=== PATIENT | female | born 1950 | race Caucasian/White ===

== ENCOUNTER 2021-01-14 13:15 | Inpatient (IN) | payer MEDICARE, BC ==
[~2021-01-14] VITALS: Ht 162.6 cm; Wt 71.2 kg
[2021-01-15] MEDS ORDERED: POTA10TA11 PO (12:19)
[2021-01-15] MEDS ORDERED: AMLO-212 PO (12:19)
[2021-01-15] MEDS ORDERED: ATOR10TA PO (12:19)
[2021-01-15] MEDS ORDERED: LAMO200T52 PO (12:19)
[2021-01-15] MEDS ORDERED: QUET200T PO (12:19)
[2021-01-15] MEDS ORDERED: MOME13HF IH (12:19)
[2021-01-15] MEDS ORDERED: LOSA100T31 PO (12:19)
[2021-01-15] MEDS ORDERED: DIVA500T54 PO (12:19)
[2021-01-15] MEDS ORDERED: LURA80TA PO (12:19)
[2021-01-15] MEDS ORDERED: TRAM50TA2 PO (12:19)
[2021-01-15] MEDS ORDERED: HYDR25TA4 PO (12:19)
[2021-01-15] MEDS ORDERED: ACET-2605 PO (12:23)
[2021-01-15] MEDS ORDERED: MULT-754 PO (12:23)
[2021-01-15] MEDS ORDERED: CEPH500C2 PO (12:23)
[2021-01-15] MEDS ORDERED: HALO5SYR IM (12:23)
[2021-01-15] MEDS ORDERED: ENOX40DI SQ (12:23)
--- NOTE | 2021-01-15 12:30 | NUR ---
RECEIVED PATIENT FROM [facility]. PATIENT ARRIVED AT UNIT ON 01/15/2021 @ 1210 PM VIA W/C. VS: 136/78, 98.7, 20, 95, 97% RA. PATIENT ADMITTED ON A 5150 HOLD FOR SUICIDAL IDEATION DTS. PER 5150 HOLD, PATIENT WANTING TO KILL HERSELF BY DRIVING INTO TRAFFIC. STATED THAT SHE WOULD DRIVE INTO TRAFFIC FOR THE LIFE INSURANCE SO IT WOULD STILL PAY PAY OUT TO . PT SATED " I JUST WANTED TO HURT MYSELF" AND "I WON'T DO IT AGAIN" UPON FACE TO FACE ASSESSMENT, PATIENT IS A & O X 3, ALERT, CALM, COOPERATIVE, PLEASANT AND REDIRECTABLE AT THIS TIME. HAS NO S/S OR C/O PAIN, NO S/S OF APPARENT DISTRESS, BREATHING IS UNLABORED WITH EQUAL RISE AND FALL OF THE CHEST. SATURATION AT 97% ON ROOM AIR. PATIENT DENIES SUICIDAL AND/OR HOMICIDAL IDEATIONS WELL AUDITORY AND/OR VISUAL HALLUCINATIONS AT THIS TIME. AMBULATORY WITH STAND BY ASSIST ONLY, FALL RISK, UNSTEADY GAIT. PT IS CONTINENT. PT,OT AND WOUND CARE CONSULTS INITIATED. PATIENT ADVISED OF HER HOLD, PATIENT RIGHTS BOOKLET GIVEN. THE PATIENT IS UNDER THE PSYCHIATRIC CARE OF DR SORENSEN AND [facility] WHO ARE AWARE OF ADMISSION. PATIENT BELONGINGS WERE INVENTORIED AND CHECKED FOR CONTRABAND, PLACED IN LOCKER. PATIENT SKIN ASSESSMENT COMPLETED, PICTURES PLACED IN CHART. PATIENT SIGN CONSENT FORMS, PATIENT IS ABLE TO PROVIDE INFORMATION. GOOD HISTORIAN. PATIENT IS UNABLE TO REMEMBER DATES FOR PNEUMOCOCCAL, INFLUENZA AND COVID VACCINE. PATIENT ORIENTATED TO ROOM, FLOOR, AND STAFF WITH ALL QUESTIONS ANSWERED. PATIENT EDUCATED ON THE USE OF THE CALL BERNAL, SIDE RAILS ARE UP X 2 FOR SAFETY, BED IS LOW AND LOCKED. BED ALARM ON. I WILL CONTINUE TO MONITOR THIS PATIENT Q15 MINUTES WITH THE HELP OF STAFF TO MONITOR SAFETY, COMFORT AND BEHAVIOR.
[2021-01-15] MEDS ORDERED: LORAZEPAM 0.5 MG TABLET PO PRN (13:00)
[2021-01-15] MEDS ORDERED: MAGNESIUM HYDROXIDE 30 ML UDC PO PRN (13:00)
[2021-01-15] MEDS ORDERED: TEMAZEPAM 7.5 MG CAPSULE PO PRN (13:00)
[2021-01-15] MEDS ORDERED: BLOOD SUGAR DIAGNOSTIC 1 EACH STRIP IN ONE (13:00)
--- NOTE | 2021-01-15 14:13 | NUR ---
SHAUN Initial Discharge Plan: Patient currently resides at home located at [address] [place] [address]; ([phone]). Patient lives with Jimbo ([phone]) and would want to go back home. SHAUN will work with the MD and treatment team to coordinate appropriate discharge.
--- NOTE | 2021-01-15 14:19 | NUR ---
SHAUN Family Contact: SW contacted patient's Jimbo ([phone]) and was unavailable at this time. SW unable to leave a voicemail. SW attempted to contact to gather collateral.
--- NOTE | 2021-01-15 14:34 | NUR ---
SHAUN Family Contact: SW contacted patient's step son José ([phone]) and left a detailed voicemail.
--- NOTE | 2021-01-15 14:35 | NUR ---
SHAUN Family Contact: SHAUN contacted patient's biological son Larry ([phone]) and gathered collateral. Larry stated that he assumes that he is the DPOA but unable to find documents. He reported if he finds documents he will send it to the unit. Larry expressed that patient has been diagnosed with bipolar disorder for 20 years and stated that the past 20 days she has been depressed and has had a manic episode. Larry expressed that patient takes care of at home. He reported that patient's adilene Jimenes takes care of her and patient at times at home. Larry expressed the time of dc patient will be discharging to patient's brothers eugene Jennings and he will be taking care of pt.
--- NOTE | 2021-01-15 15:50 | NUR ---
NOTIFIED OF BS 208 WITH NEW ORDER SLIDING SCALE WITH LOW DOSE .
[2021-01-15 16:00] VITALS: BP 129/64
[2021-01-15] MEDS ORDERED: DEXTROSE 50%-WATER 50 ML DISP.SYRIN IV PRN (16:00)
[2021-01-15] MEDS: BLOOD SUGAR DIAGNOSTIC 1 EACH STRIP IN SCH ×2 (17:18→21:22)
[2021-01-15] MEDS ORDERED: ACETAMINOPHEN ES 500 MG TABLET PO PRN (18:30)
[2021-01-15 20:00] VITALS: BP 139/86
[2021-01-15] MEDS: CEPHALEXIN MONOHYDRATE 500 MG CAPSULE PO SCH (21:17)
[2021-01-15] MEDS: LOSARTAN POTASSIUM 50 MG TABLET PO SCH (21:18)
[2021-01-15] MEDS: AMLODIPINE BESYLATE 5 MG TABLET PO SCH (21:18)
[2021-01-15] MEDS ORDERED: LAMOTRIGINE 400 MG PO SCH (22:00)
[2021-01-16] MEDS: BLOOD SUGAR DIAGNOSTIC 1 EACH STRIP IN SCH (07:30)
[2021-01-16 07:44] LABS: ALBUMIN 3.7 g/dL (3.4-5.0); BILIRUBIN,TOTAL 0.6 mg/dL (0.2-1.0); CALCIUM, SERUM 8.6 mg/dL (8.5-10.1); CREATININE 0.8 mg/dL (0.6-1.3); POTASSIUM 3.7 mmol/L (3.5-5.1); TOTAL PROTEIN, SERUM 6.8 g/dL (6.4-8.2)
[2021-01-16 07:50] LABS: CHOLESTEROL 166 mg/dL (<200); HDL CHOLESTEROL 50 mg/dL (40-60); LDL 83 mg/dL (0-99); TRIGLYCERIDES 136 mg/dL (30-150)
[2021-01-16 08:00] VITALS: BP 147/80
[2021-01-16] MEDS: MULTIVITAMINS,THERAGRAN 1 UDTAB TABLET PO SCH (08:57)
[2021-01-16] MEDS: CEPHALEXIN MONOHYDRATE 500 MG CAPSULE PO SCH (08:57)
[2021-01-16] MEDS: HYDROCHLOROTHIAZIDE 25 MG TABLET PO SCH (08:58)
[2021-01-16] MEDS: ENOXAPARIN SODIUM 40 MG/0.4 ML DISP.SYRIN SQ SCH (09:05)
[2021-01-16] MEDS: INSULIN REGULAR, HUMAN 100 UNIT/ML 3 ML VIAL SQ PRN ×2 (09:09→10:06)
--- NOTE | 2021-01-16 13:19 | NUR ---
SHAUN Family Contact: SHAUN contacted patient's biological son Larry ([phone]) wants to be the main person to contact. SHAUN notified the unit.
[2021-01-16 16:00] VITALS: BP 146/72
[2021-01-16 16:36] LABS: BILIRUBIN,URINE NEGATIVE (NEGATIVE); COLOR,URINE YELLOW (YELLOW); LEUKOCYTE ESTERASE ,URINE TRACE (NEGATIVE); NITRITE, URINE NEGATIVE (NEGATIVE); PROTEIN,URINE NEGATIVE (NEGATIVE); UGLUCOSE NEGATIVE (NEGATIVE); UROBILINOGEN,URINE 0.2 EU/dL (0.2)
[2021-01-16 16:44] LABS: BACTERIA,URINE Few /HPF (None Seen); SQUAMOUS EPITHELIAL CELL,UR Few /HPF (None Seen)
[2021-01-16 16:45] LABS: URINE AMORPHOUS PHOSPHATES Few /HPF (None Seen)
[2021-01-16] MEDS: ATORVASTATIN 10 MG TABLET PO SCH (18:17)
--- NOTE | 2021-01-16 19:30 | NUR ---
RN NOTES RECEIVED PT FROM AM SHIFT RN FOR SUSANNA. PT IN NO ACUTE DISTRESS AT THIS TIME. NO SOB NOTED. PATIENT'S BREATHING IS EVEN AND UNLABORED. SAFETY PRECAUTIONS IN PLACE. BED IN LOW LOCKED POSITION. WILL CONTINUE TO MONITOR Q15MIN ROUNDS FOR SAFETY AND BEHAVIOR.
--- NOTE | 2021-01-16 19:40 | NUR ---
RN NOTES @1919 RECEIVED CALL FROM PHARMACY; SPOKE WITH TRAY, FOLLWOING UP FOR THE CONSENT FOR ABILIFY; ADVISED THAT STILL WAITING FOR THE CONSENT FROM MD. @1928; FOLLOWED UP WITH ( JIM MORRISON,ANIBAL) FOR THE CONSENT FOR ABILIFY, HE MENTIONED HI PROVIDE CONSENT MARIUSZ MORNING 01.17.2021, WILL NOTIFY PHARMACY. TRAY FROM PHARMACY NOTIFIED AND ACKNOWLEDGED. CHICKEN BONER MADE AWARE.
[2021-01-16 20:00] VITALS: BP 143/79
[2021-01-16] MEDS ORDERED: ARIPIPRAZOLE 5 MG TABLET PO SCH (21:00)
[2021-01-16] MEDS: CIPROFLOXACIN HCL 500 MG TABLET PO SCH (21:07)
[2021-01-16] MEDS: LamoTRIgine 100 MG TABLET PO SCH (21:08)
[2021-01-16] MEDS: AMLODIPINE BESYLATE 5 MG TABLET PO SCH (21:08)
[2021-01-16] MEDS: LOSARTAN POTASSIUM 50 MG TABLET PO SCH (21:08)
[2021-01-16] MEDS: QUETIAPINE FUMARATE 100 MG TABLET PO SCH (21:08)
[2021-01-16] MEDS: ACETAMINOPHEN 325 MG TABLET PO PRN (21:09)
--- NOTE | 2021-01-17 06:55 | NUR ---
RN NOTES ENDORSED PT IN STABLE CONDITION TO AM SHIFT RN FOR SUSANNA.
[2021-01-17 08:00] VITALS: BP 140/92
[2021-01-17] MEDS: CIPROFLOXACIN HCL 500 MG TABLET PO SCH ×2 (08:20→21:06)
[2021-01-17] MEDS: MULTIVITAMINS,THERAGRAN 1 UDTAB TABLET PO SCH (08:20)
[2021-01-17] MEDS: ARIPIPRAZOLE 5 MG TABLET PO SCH (08:20)
[2021-01-17] MEDS: HYDROCHLOROTHIAZIDE 25 MG TABLET PO SCH (08:22)
[2021-01-17] MEDS: LamoTRIgine 100 MG TABLET PO SCH ×2 (08:22→21:06)
[2021-01-17] MEDS: FLUTICASONE/VILANTEROL 1 EACH BLST.W.DEV IH SCH (08:23)
[2021-01-17] MEDS: ENOXAPARIN SODIUM 40 MG/0.4 ML DISP.SYRIN SQ SCH (08:24)
[2021-01-17] MEDS: MAG HYDROX/AL HYDROX/SIMETH 30 ML UDC PO PRN (14:17)
[2021-01-17 16:00] VITALS: BP 114/65
[2021-01-17] MEDS: ATORVASTATIN 10 MG TABLET PO SCH (17:03)
[2021-01-17] MEDS: ACETAMINOPHEN 325 MG TABLET PO PRN (18:55)
[2021-01-17 20:42] VITALS: BP 143/80
[2021-01-17] MEDS: AMLODIPINE BESYLATE 5 MG TABLET PO SCH (21:47)
[2021-01-17] MEDS: LOSARTAN POTASSIUM 50 MG TABLET PO SCH (21:47)
[2021-01-17] MEDS: QUETIAPINE FUMARATE 100 MG TABLET PO SCH (22:05)
[2021-01-18 08:00] VITALS: BP 159/80
[2021-01-18] MEDS: ARIPIPRAZOLE 5 MG TABLET PO SCH (08:56)
[2021-01-18] MEDS: MULTIVITAMINS,THERAGRAN 1 UDTAB TABLET PO SCH (08:56)
[2021-01-18] MEDS: LamoTRIgine 100 MG TABLET PO SCH ×2 (08:56→20:46)
[2021-01-18] MEDS: FLUTICASONE/VILANTEROL 1 EACH BLST.W.DEV IH SCH (08:56)
[2021-01-18] MEDS: CIPROFLOXACIN HCL 500 MG TABLET PO SCH ×2 (08:56→20:45)
[2021-01-18] MEDS: HYDROCHLOROTHIAZIDE 25 MG TABLET PO SCH (08:57)
[2021-01-18] MEDS: ENOXAPARIN SODIUM 40 MG/0.4 ML DISP.SYRIN SQ SCH (08:58)
--- NOTE | 2021-01-18 09:54 | NUR ---
WOUND CARE CONSULT: PT PRESENTS WITH DRY SCRATCHES ON LOWER EXTREMITIES AND DRY SKIN, PRESENT ON ADMISSION. RECOMMENDATIONS MADE FOR SKIN PROTECTION. DISCUSSED WITH NURSING STAFF. MD IN AGREEMENT WITH PLAN OF CARE.
[2021-01-18] MEDS: MINERAL OIL/PETROLATUM,WHITE 120 GM JAR TP SCH (10:47)
[2021-01-18] MEDS: TRAMADOL HCL 50 MG TABLET PO PRN (12:00)
[2021-01-18] MEDS ORDERED: PHENAZOPYRIDINE HCL 200 MG TABLET PO PRN (12:00)
[2021-01-18] MEDS: MAG HYDROX/AL HYDROX/SIMETH 30 ML UDC PO PRN (13:56)
--- NOTE | 2021-01-18 13:56 | NUR ---
RN-NOTES PATIENT C/O INDIGESTION. MAALOX 30ML GIVEN PRN ORDER.
[2021-01-18 15:46] VITALS: BP 117/80
[2021-01-18] MEDS: ATORVASTATIN 10 MG TABLET PO SCH (17:27)
[2021-01-18 20:55] VITALS: BP 150/91
[2021-01-18] MEDS: AMLODIPINE BESYLATE 5 MG TABLET PO SCH (21:27)
[2021-01-18] MEDS: LOSARTAN POTASSIUM 50 MG TABLET PO SCH (21:27)
[2021-01-18] MEDS: QUETIAPINE FUMARATE 100 MG TABLET PO SCH (21:28)
[2021-01-19 08:00] VITALS: BP 122/74
[2021-01-19] MEDS: MULTIVITAMINS,THERAGRAN 1 UDTAB TABLET PO SCH (08:52)
[2021-01-19] MEDS: CIPROFLOXACIN HCL 500 MG TABLET PO SCH ×2 (08:53→21:29)
[2021-01-19] MEDS: HYDROCHLOROTHIAZIDE 25 MG TABLET PO SCH (08:53)
[2021-01-19] MEDS: ARIPIPRAZOLE 5 MG TABLET PO SCH (08:53)
[2021-01-19] MEDS: LamoTRIgine 100 MG TABLET PO SCH ×2 (08:56→21:30)
[2021-01-19] MEDS: ENOXAPARIN SODIUM 40 MG/0.4 ML DISP.SYRIN SQ SCH (09:05)
[2021-01-19] MEDS: FLUTICASONE/VILANTEROL 1 EACH BLST.W.DEV IH SCH (09:06)
[2021-01-19] MEDS: MINERAL OIL/PETROLATUM,WHITE 120 GM JAR TP SCH (09:06)
[2021-01-19 16:00] VITALS: BP 130/52
[2021-01-19] MEDS: ATORVASTATIN 10 MG TABLET PO SCH (17:43)
[2021-01-19] MEDS: TRAMADOL HCL 50 MG TABLET PO PRN (19:38)
--- NOTE | 2021-01-19 19:40 | NUR ---
RN NOTE: LOWER BACK PAIN PATIENT C/O LOWER BACK PAIN 07/30 AND REQUESTED TO TAKE TRAMADOL AT THIS TIME. PRN TRAMADOL 50 MG PO ADMINISTERED. WILL CONTINUE TO MONITOR.
[2021-01-19 19:54] VITALS: BP 136/75
[2021-01-19 19:57] VITALS: BP 136/75
[2021-01-19] MEDS: LOSARTAN POTASSIUM 50 MG TABLET PO SCH (21:55)
[2021-01-19] MEDS: AMLODIPINE BESYLATE 5 MG TABLET PO SCH (21:56)
[2021-01-19] MEDS: QUETIAPINE FUMARATE 100 MG TABLET PO SCH (22:07)
[2021-01-20 08:00] VITALS: BP 155/92
[2021-01-20] MEDS: ARIPIPRAZOLE 5 MG TABLET PO SCH (08:23)
[2021-01-20] MEDS: MULTIVITAMINS,THERAGRAN 1 UDTAB TABLET PO SCH (08:23)
[2021-01-20] MEDS: HYDROCHLOROTHIAZIDE 25 MG TABLET PO SCH (08:24)
[2021-01-20] MEDS: CIPROFLOXACIN HCL 500 MG TABLET PO SCH (08:24)
[2021-01-20] MEDS: LamoTRIgine 100 MG TABLET PO SCH ×2 (08:24→20:50)
[2021-01-20] MEDS: ENOXAPARIN SODIUM 40 MG/0.4 ML DISP.SYRIN SQ SCH (08:30)
[2021-01-20] MEDS: FLUTICASONE/VILANTEROL 1 EACH BLST.W.DEV IH SCH (08:45)
[2021-01-20] MEDS: MINERAL OIL/PETROLATUM,WHITE 120 GM JAR TP SCH (08:46)
[2021-01-20] MEDS: TRAMADOL HCL 50 MG TABLET PO PRN ×2 (14:09→21:36)
[2021-01-20 16:00] VITALS: BP 119/64
[2021-01-20] MEDS: ATORVASTATIN 10 MG TABLET PO SCH (17:19)
[2021-01-20 20:01] VITALS: BP 152/75
[2021-01-20] MEDS: QUETIAPINE FUMARATE 100 MG TABLET PO SCH (21:06)
[2021-01-20] MEDS: LOSARTAN POTASSIUM 50 MG TABLET PO SCH (21:06)
[2021-01-20] MEDS: AMLODIPINE BESYLATE 5 MG TABLET PO SCH (21:07)
--- NOTE | 2021-01-20 21:36 | NUR ---
GPS RN NOTE: LOWER BACK PAIN PATIENT C/O LOWER BACK PAIN ON A PAIN SCALE OF 7/10. PRN TRAMADOL 50MG PO GIVEN. WILL CONTINUE TO REASSESS.
[2021-01-21] MEDS: MAG HYDROX/AL HYDROX/SIMETH 30 ML UDC PO PRN (02:29)
--- NOTE | 2021-01-21 02:29 | NUR ---
GPS-RN NOTES: MAALOX 30ML PO GIVEN FOR INDIGESTION. WILL CONTINUE TO MONITOR.
[2021-01-21 08:00] VITALS: BP 122/66
[2021-01-21] MEDS: ARIPIPRAZOLE 5 MG TABLET PO SCH ×2 (08:39→21:19)
[2021-01-21] MEDS: MULTIVITAMINS,THERAGRAN 1 UDTAB TABLET PO SCH (08:39)
[2021-01-21] MEDS: LamoTRIgine 100 MG TABLET PO SCH ×2 (08:40→21:17)
[2021-01-21] MEDS: HYDROCHLOROTHIAZIDE 25 MG TABLET PO SCH (08:41)
[2021-01-21] MEDS: FLUTICASONE/VILANTEROL 1 EACH BLST.W.DEV IH SCH (08:42)
[2021-01-21] MEDS: ENOXAPARIN SODIUM 40 MG/0.4 ML DISP.SYRIN SQ SCH (08:42)
[2021-01-21] MEDS: MINERAL OIL/PETROLATUM,WHITE 120 GM JAR TP SCH (08:42)
--- NOTE | 2021-01-21 09:00 | NUR ---
RN NOTE- PATIENT AWAKE, ALERT LYING IN BED,CALM, NO ACUTE DISTRESS NOTED. COMPLIANT WITH MEDICATIONS. AMBULATORY STEADY GAIT. ALL NEEDS ATTENDED WILL CONT. MONITORING FOR SAFETY AND BEHAVIOR.
--- NOTE | 2021-01-21 11:38 | NUR ---
Court Hearing: Patient's court hearing for 5250 was today and it was upheld for GD and danger to self.
[2021-01-21 16:00] VITALS: BP 142/83
[2021-01-21] MEDS: ATORVASTATIN 10 MG TABLET PO SCH (17:34)
[2021-01-21] MEDS: TRAMADOL HCL 50 MG TABLET PO PRN (17:45)
[2021-01-21 20:09] VITALS: BP 129/65
[2021-01-21] MEDS: AMLODIPINE BESYLATE 5 MG TABLET PO SCH (21:17)
[2021-01-21] MEDS: QUETIAPINE FUMARATE 100 MG TABLET PO SCH (21:17)
[2021-01-21] MEDS: LOSARTAN POTASSIUM 50 MG TABLET PO SCH (21:18)
[2021-01-22 08:00] VITALS: BP 104/66
[2021-01-22] MEDS: HYDROCHLOROTHIAZIDE 25 MG TABLET PO SCH ×2 (09:00→09:43)
[2021-01-22] MEDS: MULTIVITAMINS,THERAGRAN 1 UDTAB TABLET PO SCH (09:42)
[2021-01-22] MEDS: LamoTRIgine 100 MG TABLET PO SCH ×2 (09:42→21:19)
[2021-01-22] MEDS: ARIPIPRAZOLE 5 MG TABLET PO SCH ×2 (09:42→21:19)
[2021-01-22] MEDS: MINERAL OIL/PETROLATUM,WHITE 120 GM JAR TP SCH (09:45)
[2021-01-22] MEDS: FLUTICASONE/VILANTEROL 1 EACH BLST.W.DEV IH SCH (09:45)
[2021-01-22] MEDS: ENOXAPARIN SODIUM 40 MG/0.4 ML DISP.SYRIN SQ SCH (09:46)
[2021-01-22] MEDS: TRAMADOL HCL 50 MG TABLET PO PRN (15:26)
--- NOTE | 2021-01-22 15:26 | NUR ---
Medicated with tramadol for generalize pain will continue to monitor .
[2021-01-22 16:00] VITALS: BP 130/75
[2021-01-22] MEDS: ATORVASTATIN 10 MG TABLET PO SCH (18:21)
[2021-01-22 20:00] VITALS: BP 128/79
[2021-01-22] MEDS: QUETIAPINE FUMARATE 100 MG TABLET PO SCH (21:19)
[2021-01-22] MEDS: AMLODIPINE BESYLATE 5 MG TABLET PO SCH (21:20)
[2021-01-22] MEDS: LOSARTAN POTASSIUM 50 MG TABLET PO SCH (21:20)
[2021-01-23] MEDS: TRAMADOL HCL 50 MG TABLET PO PRN (04:42)
--- NOTE | 2021-01-23 04:42 | NUR ---
GPS RN NOTE: LOWER BACK PAIN PATIENT C/O LOWER BACK PAIN ON A PAIN SCALE OF 7/10. PRN TRAMADOL 50MG PO GIVEN PER PT'S REQUEST. WILL CONTINUE TO REASSESS.
[2021-01-23 08:00] VITALS: BP 145/77
[2021-01-23] MEDS: ENOXAPARIN SODIUM 40 MG/0.4 ML DISP.SYRIN SQ SCH (08:44)
[2021-01-23] MEDS: ARIPIPRAZOLE 5 MG TABLET PO SCH ×2 (08:46→21:06)
[2021-01-23] MEDS: HYDROCHLOROTHIAZIDE 25 MG TABLET PO SCH (08:46)
[2021-01-23] MEDS: MULTIVITAMINS,THERAGRAN 1 UDTAB TABLET PO SCH (08:46)
[2021-01-23] MEDS: MINERAL OIL/PETROLATUM,WHITE 120 GM JAR TP SCH (08:47)
[2021-01-23] MEDS: LamoTRIgine 100 MG TABLET PO SCH ×2 (08:47→20:55)
[2021-01-23] MEDS: FLUTICASONE/VILANTEROL 1 EACH BLST.W.DEV IH SCH (08:47)
[2021-01-23 16:00] VITALS: BP 140/69
[2021-01-23] MEDS: ATORVASTATIN 10 MG TABLET PO SCH (17:11)
[2021-01-23 20:00] VITALS: BP 140/75
[2021-01-23] MEDS: ACETAMINOPHEN 325 MG TABLET PO PRN (20:44)
[2021-01-23] MEDS: QUETIAPINE FUMARATE 100 MG TABLET PO SCH (21:06)
[2021-01-23] MEDS: LOSARTAN POTASSIUM 50 MG TABLET PO SCH (21:06)
[2021-01-23] MEDS: AMLODIPINE BESYLATE 5 MG TABLET PO SCH (21:07)
[2021-01-24] MEDS: ACETAMINOPHEN 325 MG TABLET PO PRN ×2 (04:57→13:05)
[2021-01-24 08:00] VITALS: BP 144/68
[2021-01-24] MEDS: ENOXAPARIN SODIUM 40 MG/0.4 ML DISP.SYRIN SQ SCH (08:40)
[2021-01-24] MEDS: ARIPIPRAZOLE 5 MG TABLET PO SCH ×2 (08:41→21:42)
[2021-01-24] MEDS: MULTIVITAMINS,THERAGRAN 1 UDTAB TABLET PO SCH (08:41)
[2021-01-24] MEDS: HYDROCHLOROTHIAZIDE 25 MG TABLET PO SCH (08:42)
[2021-01-24] MEDS: LamoTRIgine 100 MG TABLET PO SCH ×2 (08:42→21:43)
[2021-01-24] MEDS: FLUTICASONE/VILANTEROL 1 EACH BLST.W.DEV IH SCH (08:46)
[2021-01-24] MEDS: MINERAL OIL/PETROLATUM,WHITE 120 GM JAR TP SCH (09:59)
[2021-01-24 16:00] VITALS: BP 106/65
[2021-01-24] MEDS: ATORVASTATIN 10 MG TABLET PO SCH (17:26)
--- NOTE | 2021-01-24 19:30 | NUR ---
GPS RN NOTE, RECEIVED PATIENT AWAKE AND IN BED, NO S/S OR COMPLAINTS OF PAIN AT THIS TIME. PATIENT IS DISPLAYING NO S/S OF APPARENT DISTRESS AT THIS TIME. PATIENT BREATHING IS UNLABORED WITH EQUAL RISE AND FALL OF THE CHEST. PATIENT IS ALERT AND ORIENTED X 3 ON ROOM AIR WITH A SPO2 95%. PATIENT IS COMPLIANT WITH MEDICATIONS, ANXIOUS AT TIMES, NEEDY, COOPERATIVE, AND NEEDS REDIRECTION. PATIENT DENIES SUICIDAL AND HOMICIDAL IDEATIONS AT THIS TIME. PATIENT ASSISTED WITH TURNING AND REPOSITIONING Q2HR AND PRN FOR COMFORT AND CIRCULATION. PATIENT HAS NO NEEDS AT THIS TIME. PATIENT EDUCATED ON THE USE OF THE CALL BERNAL. PATIENT BED SIDE RAILS UP X 2 FOR SAFETY. PATIENT BED IS LOCKED, LOW, WITH BED ALARM ON. WILL CONTINUE TO MONITOR THIS PATIENT Q15 MINUTES WITH THE HELP OF STAFF TO MAINTAIN SAFETY.
[2021-01-24 20:00] VITALS: BP 144/77
[2021-01-24] MEDS: AMLODIPINE BESYLATE 5 MG TABLET PO SCH (21:41)
[2021-01-24] MEDS: QUETIAPINE FUMARATE 100 MG TABLET PO SCH (21:41)
[2021-01-24] MEDS: LOSARTAN POTASSIUM 50 MG TABLET PO SCH (21:43)
[2021-01-25] MEDS: MAG HYDROX/AL HYDROX/SIMETH 30 ML UDC PO PRN (03:25)
--- NOTE | 2021-01-25 03:25 | NUR ---
GPS RN NOTE, PATIENT HAS A COMPLAINT OF INDIGESTION AND IS REQUESTING MAALOX AT THIS TIME. PATIENT VITAL SIGNS ARE STABLE. GAVE MAALOX 1 UNIT DOSE Q4HR PRN ORDERED. WILL REASSESS FOR INDIGESTION AND I WILL CONTINUE TO MONITOR THIS PATIENT WITH THE HELP OF STAFF.
--- NOTE | 2021-01-25 07:58 | NUR ---
SW Discharge Note: Patient will be discharged to brothers [facility] ([phone]) located at [address] [place] [address]; ([phone]). Patients brother José ([phone]) will pick u pt at 1PM. Patient appears alert and oriented x2, but happy to be going back to her facility. Patient denies suicidal or homicidal ideation. Patient denies visual/auditory hallucinations. Patient will follow up with (Commodity Management Specialist) Dr. Tara Abel located at [address] Mendez [address] [place] [id number]; ([phone]) on February 08 at 11:15AM. Patient will follow up with Dr. Ramírez (Psychiatrist) located at [facility] in [address] [place] [id number]; ([phone]) on February 06 at 12PM. The Multidisciplinary Exitcare form was done, printed, signed and given to the patient.
[2021-01-25 08:00] VITALS: BP 158/77
[2021-01-25] MEDS: ARIPIPRAZOLE 5 MG TABLET PO SCH (08:32)
[2021-01-25] MEDS: LamoTRIgine 100 MG TABLET PO SCH (08:32)
[2021-01-25] MEDS: MULTIVITAMINS,THERAGRAN 1 UDTAB TABLET PO SCH (08:32)
[2021-01-25 08:33] VITALS: BP 158/77
[2021-01-25] MEDS: HYDROCHLOROTHIAZIDE 25 MG TABLET PO SCH (08:33)
[2021-01-25] MEDS: ENOXAPARIN SODIUM 40 MG/0.4 ML DISP.SYRIN SQ SCH (08:38)
[2021-01-25] MEDS: MINERAL OIL/PETROLATUM,WHITE 120 GM JAR TP SCH (08:39)
[2021-01-25] MEDS: FLUTICASONE/VILANTEROL 1 EACH BLST.W.DEV IH SCH (08:39)
--- NOTE | 2021-01-25 11:10 | NUR ---
RN-NOTES PATIENT HAD A DISCHARGE AND DISCONTINUE HOLD ORDER FROM SIXTH GRADE TEACHER PITO MORRISON. NOTED AND CARRIED OUT.
--- NOTE | 2021-01-25 13:50 | NUR ---
RN-DISCHARGE NOTES PATIENT WAS DISCHARGE TODAY BY ANIBAL OLMEDO ( ) PSYCHIATRIST ,ANIBAL MEI (BUYER BROKER) MEDICALLY CLEAR PATIENT FOR DISCHARGE.PATIENT DID NOT VERBALIZE SI/HI,DENIES VISUAL /AUDITORY HALLUCINATIONS AT THE TIME OF DISCHARGE. ALL DISCHARGE MEDICATIONS WAS REVIEWED WITH THE PATIENT WITH UNDERSTANDING. INSTRUCTED PATIENT TO CALL 911 OR GO TO THE NEAREST EMERGENCY ROOM INCASE OF EMERGENCY AND TO FOLLOW UP WITH PCP AND PSYCHIATRIST IN A WEEK OR NEEDED. PATIENT WAS CALL CENTRE SUPERVISOR BY HER BROTHER BRAIN COSTA VIA PRIVATE CAR. ALL BELONGINGS WAS GIVEN BACK TO THE PATIENT INCLUDING RX. PATIENT LEFT THE UNIT IN STABLE CONDITION ALERT ORIENTED X3 AMBULATORY STEADY GAIT.ASSISTED BY ONE ASSISTANT WINEMAKER IN THE LOBBY FOR SAFETY.
== END 2021-01-25 13:50 | disposition home or self-care (01) | DRG 885 ==
LOC: GPS 01-15 11:40
PROVIDERS: ADMIT Psychiatry & Neurology Psychiatry; ATTEND Registered Nurse
DX: F31.5 Bipolar disorder, current episode depressed, severe, with psychotic features (principal); R45.851 Suicidal ideations; N39.0 Urinary tract infection, site not specified; F29 Unspecified psychosis not due to a substance or known physiological condition; F41.9 Anxiety disorder, unspecified; E78.5 Hyperlipidemia, unspecified; I10 Essential (primary) hypertension; K21.9 Gastro-esophageal reflux disease without esophagitis; N32.81 Overactive bladder; G47.33 Obstructive sleep apnea (adult) (pediatric); J45.909 Unspecified asthma, uncomplicated; Z98.890 Other specified postprocedural states
CPT/HCPCS: 36415; 80053-TC; 80061-TC; 80175; 81001; 82962-TC; 84443-TC; 87081-TC; 87086-TC; 97116-TC; 97530-TC; J1650; J1815